=== PATIENT | female | born 1995 | race African-American/Black ===

== ENCOUNTER 2017-03-24 13:01 | Emergency (ER) | payer OTHER ==
[~2017-03-24 13:01] MED LIST: ADDERALL PO; AMOXICILLIN875 MG PO; BROMFED DM COU118 ML PO; LO/OVRAL-281 TAB PO; NO MEDICATIONS; PREDNISONE PO; PROMETHAZINE W118 M1 PO; [UNRECOGNIZED DRUG - OTHER]
[2017-03-24] MEDS ORDERED: ADDERALLXR PO (13:12)
[2017-03-24] MEDS ORDERED: NEURONTIN300 MG PO (13:12)
[2017-03-24] MEDS ORDERED: TRAZODONE HCL100 MG PO (13:12)
[2017-03-24 14:27] LABS: BASOPHIL% 0.5 % (0-2.5); EOSINOPHIL# 0.2 X10e3 (0-0.7); EOSINOPHIL% 3.3 % (0.0-7.0); HEMATOCRIT 41.4 % (35.0-45.0); HEMOGLOBIN 13.8 gm/dL (12.0-16.0); LYMPHOCYTE% 29.3 % (17.0-45.0); MEAN CELL VOLUME 84.7 FL (83-96); MEAN CORPUSCULAR HEMOGLOBIN 28.1 PG (28-34); MEAN CORPUSCULAR HGB CONC 33.2 g/dL (30-36); MEAN PLATELET VOLUME 9.3 FL (6.5-11.5); MONOCYTE# 0.7 X10e3 (0-1.0); MONOCYTE% 9.6 % (3.0-12.0); NEUTROPHIL# 3.9 X10e3 (1.5-7.1); NEUTROPHIL% 57.3 % (40-75); PLATELET COUNT 169 X10e3 (140-420); RED BLOOD COUNT 4.89 X10e (3.90-5.30); RED CELL DISTRIBUTION WIDTH 13.1 % (11.0-15.5); WHITE BLOOD COUNT 6.8 X10e3 (4.0-10.5)
[2017-03-24 14:30] LABS: DIFF IND NO
[2017-03-24 14:45] LABS: CALCIUM SERUM 8.9 mg/dL (8.4-10.2); CREATININE SERUM 0.8 mg/dL (0.6-1.4); GLOM FILT RATE Estimated 121.4 mL/min (>60); POTASSIUM 3.6 mmol/L (3.5-5.1)
== END 2017-03-24 15:26 | disposition home or self-care (01) ==
LOC: SED 13:01
PROVIDERS: Student in an Organized Health Care Education/Training Program
DX: G43.909 Migraine, unspecified, not intractable, without status migrainosus (principal); Z79.899 Other long term (current) drug therapy
CPT/HCPCS: 36415; 80048; 84703; 85025; 96361; 96374; 96375; 99284; J0595; J1200; J2405